=== PATIENT | female | born 1995 | race African-American/Black ===

== ENCOUNTER 2017-09-06 10:03 | Emergency (ER) | payer MEDICAID, OTHER ==
[~2017-09-06] VITALS: Ht 167.6 cm; Wt 68.0 kg
[2017-09-06] MEDS ORDERED: LORAZEPAM 1MG TABLET PO ONE (10:45)
[2017-09-06 11:21] LABS: *AMPHETAMINES SCREEN URINE NEGATIVE (NEGATIVE)
[2017-09-06 11:22] LABS: *BARBITURATES SCREEN URINE NEGATIVE (NEGATIVE); *BENZODIAZEPINES SCREEN URINE NEGATIVE (NEGATIVE); METHADONE URINE SCREEN NEGATIVE (NEGATIVE); OPIATES URINE SCREEN NEGATIVE (NEGATIVE); PHENCYCLIDINE URINE SCREEN NEGATIVE (NEGATIVE)
[2017-09-06 11:23] LABS: CHLORIDE 111 mEq/L (98-107)
[2017-09-06 11:24] LABS: *COCAINE SCREEN URINE PRESUMTIVE POSITIVE (NEGATIVE); CANNABINOID URINE SCREEN PRESUMTIVE POSITIVE (NEGATIVE)
[2017-09-06 11:27] LABS: BASOPHILS % 0.5 % (0.0-2.0); EOSINOPHILS % 1.4 % (0.0-5.0); ETHANOL BLOOD < 10 mg/dL; HEMATOCRIT. 38.1 % (36.0-48.0); MEAN CORPUSCULAR VOLUME 84.9 fL (81.0-99.0); MEAN PLATELET VOLUME 7.6 fl (7.4-10.4); MONOCYTES % 6.6 % (2.0-8.0); NEUTROPHILS % 64.5 % (40.0-76.0); PLATELET 373 x1000/uL (130-400); RED BLOOD CELL COUNT 4.49 mill/uL (4.2-5.4); RED CELL DISTRIBUTION WIDTH 16.4 % (11.6-14.6)
[2017-09-06 11:29] LABS: INR 1.1; PARTIAL THROMBOPLASTIN TIME 28.5 sec (23.4-31.0); PROTHROMBIN TIME 11.1 sec (9.4-11.6)
[2017-09-06 11:32] LABS: CREATINE KINASE 209 IU/L (26-192)
[2017-09-06 11:34] LABS: CREATINE KINASE MB FRACTION 0.7 ng/mL (0.5-3.6)
[2017-09-06 11:43] LABS: HCG SCREEN NEGATIVE
[2017-09-06] MEDS ORDERED: ACETAMINOPHEN 325MG TABLET PO ONE (12:45)
[2017-09-06 13:06] VITALS: BP 123/65
== END 2017-09-06 13:18 | disposition home or self-care (01) ==
LOC: ER 10:24
DX: F14.90 Cocaine use, unspecified, uncomplicated (principal); I10 Essential (primary) hypertension; Z88.6 Allergy status to analgesic agent; G89.29 Other chronic pain
CPT/HCPCS: 36415; 80048; 80305; 80307; 80329; 82550; 82553; 83735; 84703; 85025; 85044; 85610; 85730; 99284; G0482

== ENCOUNTER 2018-06-08 13:38 | Emergency (ER) | payer OTHER ==
[~2018-06-08] VITALS: Ht 172.7 cm; Wt 89.0 kg
[2018-06-08 14:05] VITALS: BP 148/74
== END 2018-06-08 16:17 | disposition left against medical advice (07) ==
LOC: ER 13:38
DX: R07.9 Chest pain, unspecified (principal); Z53.21 Procedure and treatment not carried out due to patient leaving prior to being seen by health care provider